=== PATIENT | male | born 2000 ===

== ENCOUNTER 2020-10-23 07:42 | Emergency (ER) | payer MEDICAID ==
[~2020-10-23] VITALS: Ht 170.2 cm; Wt 58.3 kg
[2020-10-23 07:47] VITALS: BP 111/92
--- NOTE | 2020-10-23 08:10 | NUR ---
STREET ENGINEER: NO ANSWER WHEN CALL BACK TO ROOM
--- NOTE | 2020-10-23 08:26 | NUR ---
DRAFTER ELECTRONIC: NO ANSWER WHEN CALL FROM [facility]
--- NOTE | 2020-10-23 08:34 | NUR ---
CAMPUS RECRUITER: NO CALLED FROM [facility]
== END 2020-10-23 08:36 | disposition left against medical advice (07) ==
LOC: ED 08:25
DX: S61.412A Laceration without foreign body of left hand, initial encounter (principal); S61.411A Laceration without foreign body of right hand, initial encounter; Z53.21 Procedure and treatment not carried out due to patient leaving prior to being seen by health care provider; X58.XXXA Exposure to other specified factors, initial encounter